=== PATIENT | female | born 1965 | race Caucasian/White ===

== ENCOUNTER 2016-02-23 07:24 | Outpatient (CLI) | payer BC, MEDICAID, OTHER | END 2016-02-23 07:25 | disposition home or self-care (01) | DX: R10.11 Right upper quadrant pain (principal) ==

== ENCOUNTER 2016-02-23 17:07 | Outpatient (CLI) | payer OTHER | END 2016-02-23 17:08 | disposition home or self-care (01) | DX: R10.11 Right upper quadrant pain (principal); K76.89 Other specified diseases of liver ==

== ENCOUNTER 2016-12-27 10:07 | Outpatient (CLI) | payer BC ==
--- NOTE | 2016-12-30 13:50 | Mammography Report ---
DIGITAL SCREENING MAMMOGRAM: 12/27/2016 CLINICAL INDICATION: A 51-year-old with history of bilateral augmentation, for screening. TECHNIQUE: Routine CC and MLO projections were obtained of the breasts. Bilateral implant-displaced views. COMPARISON: 08/2015, 03/2013, 09/2011, 06/2010, 06/2009. FINDINGS: T breasts again demonstrate scattered fibroglandular densities bilaterally. Bilateral subg landular silicone implants are stable. Punctate, typically benign calcifications are present. No susp icious masses, clustered microcalcifications, or regions of architectural distortion are identified. IMPRESSION: BENIGN FINDINGS. RECOMMENDATION: ROUTINE ANNUAL SCREENING UNLESS OTHERWISE CLINICALLY INDICATED. BIRADS CATEGORY 2-BENIGN FINDINGS. STANDARD QUALIFYING STATEMENTS 1. This examination was reviewed with the aid of Computer-Aided Detection (CAD). 2. A negative or benign imaging report should not delay biopsy if clinically suspicious findings are present. Consider surgical consultation if warranted. More than 5% of cancers are not identified by i maging. 3. Dense breasts may obscure an underlying neoplasm. JOB #: [id number] EXT JOB #:[id number]
== END 2016-12-27 10:08 | disposition home or self-care (01) ==
LOC: DI.N 10:07
PROVIDERS: ATTEND Registered Nurse
DX: Z12.31 Encounter for screening mammogram for malignant neoplasm of breast (principal)
CPT/HCPCS: 77067

== ENCOUNTER 2017-02-11 07:45 | Outpatient (CLI) | payer BC | END 2017-02-11 07:46 | disposition critical access hospital (66) | LOC: EMS 07:45 | PROVIDERS: ATTEND Surgery | DX: R07.9 Chest pain, unspecified (principal) | CPT/HCPCS: A0425; A0427 ==

== ENCOUNTER 2017-02-11 08:05 | Emergency (ER) | payer BC ==
[2017-02-11] MEDS ORDERED: diltiaZEM INJ 5 MG/ML VIAL IVP STA ×2 (08:12→08:19)
[2017-02-11] MEDS ORDERED: diltiaZEM INJ 5 MG/ML VIAL ONE (08:19)
--- NOTE | 2017-02-11 08:25 | ED Physician Documentation ---
PD HPI CHEST PAIN - Stated complaint Stated Complaint: CP - Chief complaint Chief Complaint: Cardiac - History obtained from History obtained from: Patient, EMS - History of Present Illness Timing - onset: Enter time (2100), Last night Timing - onset during: Rest Timing - duration: Hours Timing - details: Gradual onset, Still present, Waxing and waning Quality: Pressure, Sharp Location: Substernal Radiation: Neck Improved by: Rest Worsened by: Exertion Associated symptoms: Shortness of air, Diaphoresis, Nausea, Feeling faint / dizzy, General Weakness, Palpitations Similar symptoms before: Has not had sx before Recently seen: Not recently seen - Additional information Additional information: Previously healthy 51-year-old female developed some rapid heart rate last night she developed some intermittent chest pain associated with this with a background 3 out of 10 chest pain and periodically this pain is much worse. 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 She has not had episodes of atrial fibrillation previously she does not drink alcohol and she does drink coffee. She states that she has not had any recent illness is not feeling off in any way and has not been overindulgence anything specific. She does have some general stress in her life but no physical ailment. Review of Systems Constitutional: denies: Fever, Chills, Myalgias Eyes: denies: Decreased vision Ears: denies: Ear pain Nose: denies: Rhinorrhea / runny nose, Congestion Throat: denies: Sore throat Cardiac: reports: Chest pain / pressure, Palpitations. denies: Pedal edema, Calf pain Respiratory: reports: Dyspnea. 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 HEENT: Tonsil/Adenoidectomy - Present Medications Home Medications: Ambulatory Orders Medication Instructions Recorded Confirmed Metoprolol Tartrate 25 mg PO BID #40 tablet 02/11/17 - Allergies Allergies/Adverse Reactions: Allergies Allergy/AdvReac Type Severity Reaction Status Date / Time Penicillins Allergy Hives Verified 02/11/17 08:10 - Social History Does the pt smoke?: No Smoking Status: Never smoker Does the pt drink ETOH?: Yes Does the pt have substance abuse?: No - Immunizations Immunizations are current?: Yes - POLST Patient has POLST: Yes PD ED PE NORMAL - Vitals Vital signs reviewed: Yes (tachy and hypertensive ) - General General: Alert and oriented X 3, Well developed/nourished, Other (Anxious appearing 51-year-old female who is hyperventilating) - HEENT HEENT: Atraumatic, PERRL, EOMI - Neck Neck: Supple, no meningeal sign, No bony TTP, No JVD - Cardiac Cardiac: No murmur, Other (rapid irregularly irregular rate and rhythm) - Respiratory Respiratory: No respiratory distress, Clear bilaterally - Abdomen Abdomen: Soft, Non tender - Back Back: No CVA TTP, No spinal TTP - Derm Derm: Normal color, Warm and dry, No rash - Extremities Extremities: No deformity, No edema - Neuro Neuro: Alert and oriented X 3, No motor deficit, No sensory deficit Eye Opening: Spontaneous Motor: Obeys Commands Verbal: Oriented GCS Score: 15 - Psych Psych: Normal affect, Other (The mood is anxious.) Results - Vitals Vitals: Vital Signs - 24 hr 02/11/17 02/11/17 02/11/17 08:06 08:25 08:30 Temperature 36.6 C Heart Rate 151 H 97 103 H Respiratory 19 16 16 Rate Blood Pressure 144/84 H 130/98 H 127/82 H O2 Saturation 99 99 99 02/11/17 02/11/17 02/11/17 08:35 10:10 10:15 Temperature Heart Rate 91 81 83 Respiratory 20 14 Rate Blood Pressure 132/94 H 115/81 H 109/84 H O2 Saturation 100 97 97 02/11/17 02/11/17 02/11/17 10:20 11:32 11:35 Temperature Heart Rate 81 93 83 Respiratory 19 16 14 Rate Blood Pressure 110/84 H 118/80 118/80 O2 Saturation 97 97 99 Oxygen O2 Source Room air - EKG (time done) 0814 Rate: Rate (enter#) (150) Rhythm: Atrial fibrillation Compare to prior EKG: Old EKG unavailable Computer interpretation: Agree with computer - Labs Labs: Laboratory Tests 02/11/17 02/11/1718 08:41 08:41 08:41 WBC 9.4 RBC 4.93 Hgb 15.6 Hct 45.3 MCV 91.9 MCH 31.7 H MCHC 34.4 RDW 13.5 Plt Count 329 MPV 8.0 Neut # 6.3 Lymph # 2.3 [place] # 0.6 Eos # 0.2 Baso # 0.1 Absolute Nucleated RBC 0.01 Nucleated RBC % 0.1 D-Dimer Sodium 136 Potassium 3.9 Chloride 108 Carbon Dioxide 18 L Anion Gap 10.0 BUN 18 Creatinine 0.6 Estimated GFR (MDRD) 105 Glucose 110 H Calcium 9.2 Total Bilirubin 0.8 AST 20 ALT 18 Alkaline Phosphatase 55 Troponin I < 0.04 B-Natriuretic Peptide Total Protein 7.9 Albumin 4.7 Globulin 3.2 Albumin/Globulin Ratio 1.5 Lipase 32 TSH Urine Color Urine Clarity Urine pH Ur Specific [place] Urine Protein Urine Glucose (UA) Urine Ketones Urine Occult Blood Urine Nitrite Urine Bilirubin Urine Urobilinogen Ur Leukocyte Esterase Ur Microscopic Review Urine Culture Comments Urine HCG, Qual Urine Opiates Screen Ur Oxycodone Screen Urine Methadone Screen Ur Propoxyphene Screen Ur Barbiturates Screen Ur Tricyclics Screen Ur Phencyclidine Scrn Ur Amphetamine Screen U Methamphetamines Scrn U Benzodiazepines Scrn Urine Cocaine Screen U Cannabinoids Screen Ethyl Alcohol < 5.0 02/11/17 02/11/17 02/11/17 08:41 08:41 08:41 WBC RBC Hgb Hct MCV MCH MCHC RDW Plt Count MPV Neut # Lymph # [place] # Eos # Baso # Absolute Nucleated RBC Nucleated RBC % D-Dimer < 200.0 L Sodium Potassium Chloride Carbon Dioxide Anion Gap BUN Creatinine Estimated GFR (MDRD) Glucose Calcium Total Bilirubin AST ALT Alkaline Phosphatase Troponin I B-Natriuretic Peptide 36 Total Protein Albumin Globulin Albumin/Globulin Ratio Lipase TSH 1.41 Urine Color Urine Clarity Urine pH Ur Specific [place] Urine Protein Urine Glucose (UA) Urine Ketones Urine Occult Blood Urine Nitrite Urine Bilirubin Urine Urobilinogen Ur Leukocyte Esterase Ur Microscopic Review Urine Culture Comments Urine HCG, Qual Urine Opiates Screen Ur Oxycodone Screen Urine Methadone Screen Ur Propoxyphene Screen Ur Barbiturates Screen Ur Tricyclics Screen Ur Phencyclidine Scrn Ur Amphetamine Screen U Methamphetamines Scrn U Benzodiazepines Scrn Urine Cocaine Screen U Cannabinoids Screen Ethyl Alcohol 02/11/17 02/11/17 09:05 09:05 WBC RBC Hgb Hct MCV MCH MCHC RDW Plt Count MPV Neut # Lymph # [place] # Eos # Baso # Absolute Nucleated RBC Nucleated RBC % D-Dimer Sodium Potassium Chloride Carbon Dioxide Anion Gap BUN Creatinine Estimated GFR (MDRD) Glucose Calcium Total Bilirubin AST ALT Alkaline Phosphatase Troponin I B-Natriuretic Peptide Total Protein Albumin Globulin Albumin/Globulin Ratio Lipase TSH Urine Color YELLOW Urine Clarity CLEAR Urine pH 6.5 Ur Specific [place] 1.010 Urine Protein NEGATIVE Urine Glucose (UA) NEGATIVE Urine Ketones NEGATIVE Urine Occult Blood NEGATIVE Urine Nitrite NEGATIVE Urine Bilirubin NEGATIVE Urine Urobilinogen 0.2 (NORMAL) Ur Leukocyte Esterase NEGATIVE Ur Microscopic Review NOT INDICATED Urine Culture Comments NOT INDICATED Urine HCG, Qual NEGATIVE Urine Opiates Screen NEGATIVE Ur Oxycodone Screen NEGATIVE Urine Methadone Screen NEGATIVE Ur Propoxyphene Screen NEGATIVE Ur Barbiturates Screen NEGATIVE Ur Tricyclics Screen NEGATIVE Ur Phencyclidine Scrn NEGATIVE Ur Amphetamine Screen NEGATIVE U Methamphetamines Scrn NEGATIVE U Benzodiazepines Scrn NEGATIVE Urine Cocaine Screen NEGATIVE U Cannabinoids Screen NEGATIVE Ethyl Alcohol - Rads (name of study) 1 veiw chest Radiology: Prelim report reviewed (Impression: Normal single view chest), EMP read indepedently, See rad report Procedures - IVC sono (time) 0820 Bedside IVC sono: IVC measures (cm) (2.05), IVC collapsed c insp (cm) (1.90), High CVP PD MEDICAL DECISION MAKING - ED course Complexity details: reviewed results, re-evaluated patient, considered differential, d/w patient, d/w family ED course: 51-year-old previously healthy female with acute atrial fibrillation flutter and a rapid ventricular response up to 160 appears not to be tolerating this with increased central venous pressure and dyspnea. She is administered Cardizem 20 mg intravenously and a subsequent dose of 25 mg. This does slow her heart rate to under 100. She is anxious and is administered Ativan 1 mg as well. She has inadequate rate control and she is subsequently administered metoprolol 5 mg intravenously with improvement in her rate and symptoms. Departure - Departure Disposition: 01 Home, Self Care Clinical Impression: Atrial fibrillation and flutter Condition: Stable Instructions: ED Afib Follow-Up: [facility] [Provider Group] Prescriptions: Metoprolol Tartrate 25 mg PO BID #40 tablet Forms: Activity restrictions Discharge Date/Time: 02/11/17 11:37
--- NOTE | 2017-02-11 08:43 | XRAY Preliminary Report ---
Exam: XR CHEST 1 VIEW X-RAY IMPRESSION: Normal single view chest. [facility] SITE ID: [id number]
--- NOTE | 2017-02-11 08:43 | XRAY Report ---
EXAM: CHEST RADIOGRAPHY EXAM DATE: 02/11/2017 08:34 AM. CLINICAL HISTORY: Chest pain. COMPARISON: None. TECHNIQUE: 1 view. FINDINGS: Lungs/Pleura: No focal opacities evident. No pleural effusion. No pneumothorax. Mediastinum: Within exam limitations, the cardiomediastinal contour is normal. Other: None. IMPRESSION: Normal single view chest. [facility] Referring Provider Line: [phone] SITE ID: [id number]
[2017-02-11] MEDS ORDERED: LORazepam 2 MG/ML VIAL IVP STA (08:44)
[2017-02-11 08:45] LABS: BASOPHILS # (AUTO) 0.1 10^3/uL (0.0-0.1); EOSINOPHILS # (AUTO) 0.2 10^3/uL (0.0-0.7); EOSINOPHILS % (AUTO) 1.7 %; HGB - HEMOGLOBIN 15.6 g/dL (12.0-16.0); LYMPHOCYTES # (AUTO) 2.3 10^3/uL (1.5-3.5); LYMPHOCYTES % (AUTO) 24.2 %; MEAN CORPUSCULAR HEMOGLOBIN 31.7 pg (27.0-31.0); MEAN CORPUSCULAR HGB CONC 34.4 g/dL (32.0-36.0); MEAN CORPUSCULAR VOLUME 91.9 fL (81.0-99.0); MONOCYTES # (AUTO) 0.6 10^3/uL (0.0-1.0); MONOCYTES % (AUTO) 6.5 %; NEUTROPHILS # (AUTO) 6.3 10^3/uL (1.5-6.6); NEUTROPHILS % (AUTO) 66.6 %; PLT - PLATELET COUNT 329 10^3/uL (130-450); RED BLOOD COUNT 4.93 10^6/uL (4.20-5.40); RED CELL DISTRIBUTION WIDTH 13.5 % (12.0-15.0); WHITE BLOOD COUNT 9.4 x10^3/uL (4.8-10.8)
[2017-02-11] MEDS ORDERED: LORazepam 2 MG/ML VIAL ONE (08:52)
[2017-02-11 08:57] LABS: ALBUMIN 4.7 g/dL (3.2-5.5); ALBUMIN/GLOBULIN RATIO 1.5 (1.0-2.2); ALKALINE PHOSPHATASE 55 IU/L (42-121); ALT ALANINE AMINOTRANSFERASE 18 IU/L (10-60); AST ASPARTATE AMINOTRANSFERASE 20 IU/L (10-42); BILIRUBIN,TOTAL 0.8 mg/dL (0.2-1.0); BUN - BLOOD UREA NITROGEN 18 mg/dL (6-20); CALCIUM 9.2 mg/dL (8.5-10.3); CARBON DIOXIDE - CO2 18 mmol/L (21-32); CHLORIDE 108 mmol/L (101-111); CREATININE 0.6 mg/dL (0.4-1.0); GFR - MDRD 105 (>89); GLUCOSE 110 mg/dL (70-100); LIPASE 32 U/L (22-51); SODIUM 136 mmol/L (135-145); TOTAL PROTEIN 7.9 g/dL (6.7-8.2)
[2017-02-11 09:08] LABS: MUDS CUTOFF CONCENTRATIONS CUTOFF CONC BELOW:
[2017-02-11 09:12] LABS: BILIRUBIN,URINE NEGATIVE (NEGATIVE); GLUCOSE, URINE (UA) NEGATIVE (NEGATIVE); KETONES,URINE (UA) NEGATIVE (NEGATIVE); LEUKOCYTE ESTERASE, URINE NEGATIVE (NEGATIVE); NITRITE,URINE NEGATIVE (NEGATIVE); OCCULT BLOOD,URINE NEGATIVE (NEGATIVE); PH,URINE 6.5 PH (5.0-7.5); PROTEIN,URINE NEGATIVE (NEGATIVE); UROBILINOGEN,URINE 0.2 (NORMAL) E.U./dL (NORMAL)
[2017-02-11 09:29] LABS: CLARITY,URINE CLEAR (CLEAR); HCG UR QUAL NEGATIVE
[2017-02-11 09:30] LABS: AMPHETAMINE SCREEN,URINE NEGATIVE (NEGATIVE); BENZODIAZEPINES SCREEN, URINE NEGATIVE (NEGATIVE); COCAINE SCREEN URINE NEGATIVE (NEGATIVE); METHADONE SCREEN, URINE NEGATIVE (NEGATIVE); METHAMPHETAMINES SCREEN, URINE NEGATIVE (NEGATIVE); OPIATE SCREEN, URINE NEGATIVE (NEGATIVE); OXYCODONE SCREEN, URINE NEGATIVE (NEGATIVE); PROPOXYPHENE SCREEN, URINE NEGATIVE (NEGATIVE); TRICYCLIC ANTIDEPRESSANT,URINE NEGATIVE (NEGATIVE)
[2017-02-11] MEDS ORDERED: METOPROLOL 5 MG/5 ML VIAL IVP STA (10:01)
[2017-02-11 11:33] VITALS: BP 118/80
== END 2017-02-11 11:37 | disposition home or self-care (01) ==
LOC: EDUNIT# → ED 08:05
DX: I48.91 Unspecified atrial fibrillation (principal); I48.92 Unspecified atrial flutter; F41.9 Anxiety disorder, unspecified; R06.4 Hyperventilation
CPT/HCPCS: 36415; 71045; 80053; 80306; 80320; 81003; 81025; 83690; 83880; 84443; 84484; 85025; 85379; 93005; 96374; 96375; 99284; J2060; 81001; 87086

== ENCOUNTER 2017-02-24 07:48 | Day surgery (SDC) | payer BC ==
[2017-02-24 08:09] LABS: HCG UR QUAL NEGATIVE
[2017-02-24] MEDS ORDERED: LACTATED RINGERS 1,000 ML IV ONE (08:26)
[2017-02-24] MEDS ORDERED: fentaNYL 100 MCG/2 ML VIAL IVP ONE (08:55)
[2017-02-24] MEDS ORDERED: MIDAZOLAM 2 MG/2 ML VIAL IVP ONE (08:55)
[2017-02-24 09:58] VITALS: BP 132/68
== END 2017-02-24 07:49 | disposition home or self-care (01) ==
LOC: SDS 07:48
PROVIDERS: ATTEND Surgery
PROC: 0DJD8ZZ Inspection of Lower Intestinal Tract, Via Natural or Artificial Opening Endoscopic (ICD-10-PCS; principal; 2017-02-24 09:00)
DX: Z12.11 Encounter for screening for malignant neoplasm of colon (principal); K57.30 Diverticulosis of large intestine without perforation or abscess without bleeding; K64.8 Other hemorrhoids
CPT/HCPCS: 45378; 81025; J7120

== ENCOUNTER 2018-03-21 11:19 | Emergency (ER) | payer BC ==
[2018-03-21 11:23] VITALS: BP 140/78
--- NOTE | 2018-03-21 11:51 | ED Physician Documentation ---
PD HPI URI - Stated complaint Stated Complaint: R EAR PX - Chief complaint Chief Complaint: Heent - History obtained from History obtained from: Patient - History of Present Illness Timing - onset: How many days ago (right ear hurting just the past 1-2 days; less hearing; no discharge.) Timing duration: Days (1-2) Timing details: Gradual onset, Still present Associated symptoms: Fever, Chills, Ear pain, Nasal congestion, Dry cough. No: Sore throat, Hemoptysis, NVD Contributing factors: Sick contact. No: COPD / asthma Similar symptoms before: Has not had sx before Recently seen: Not recently seen Review of Systems Constitutional: reports: Myalgias. 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, Other HEENT: Tonsil/Adenoidectomy - Present Medications Home Medications: Ambulatory Orders Medication Instructions Recorded Confirmed Cephalexin [Keflex] 500 mg PO TID #21 capsule 03/21/18 Dexamethasone [Decadron] 4 mg PO DAILY #5 tablet 03/21/18 Diltiazem HCl [Cardizem] 120 mg PO 03/21/18 Diphenoxylate/Atropine [Lomotil] 1 each PO QID PRN #12 tablet 03/21/18 Ondansetron Odt [Zofran] 4 mg TL Q6H PRN #10 tablet 03/21/18 Saccharomyces Boulardii [Florastor] 250 mg PO BID #20 capsule 03/21/18 - Allergies Allergies/Adverse Reactions: Allergies Allergy/AdvReac Type Severity Reaction Status Date / Time Penicillins Allergy Hives Verified 03/21/18 11:23 - Social History Does the pt smoke?: No Smoking Status: Never smoker Does the pt drink ETOH?: Yes Does the pt have substance abuse?: No - Immunizations Immunizations are current?: Yes - POLST Patient has POLST: Yes Results - Vitals Vitals: Vital Signs - 24 hr 03/21/18 11:21 Temperature 36.8 C Heart Rate 72 Respiratory 16 Rate Blood Pressure 140/78 H O2 Saturation 99 Oxygen O2 Source Room air - Labs Labs: Microbiology 03/21/18 12:24 Occult Blood - Final Stool Laboratory Tests 03/21/18 12:29 Influenza A (Rapid) Negative Influenza B (Rapid) Negative PD MEDICAL DECISION MAKING - ED course Complexity details: reviewed results (guiac negative; presume the black stool was from the Pepto. ), considered differential (sounding flu-like though not high fevers. had some nausea and diarrhea, started to take Pepto for stomach and gas. Has black stools now. Still with congestion, and has developed ear pain. ), d/w patient Departure - Departure Disposition: 01 Home, Self Care Clinical Impression: Flu-like symptoms Otitis media Qualifiers: Otitis media type: suppurative Chronicity: acute Laterality: right Recurrence: non-recurrent Spontaneous tympanic membrane rupture: without spontaneous rupture Qualified Code(s): H66.001 - Acute suppurative otitis media without spontaneous rupture of ear drum, right ear Condition: Stable Record reviewed to determine appropriate education?: Yes Instructions: ED Otitis Media Acute Adult Follow-Up: Cheri Vilchis MD [Primary Care Provider] - Prescriptions: Cephalexin [Keflex] 500 mg PO TID #21 capsule Dexamethasone [Decadron] 4 mg PO DAILY #5 tablet Diphenoxylate/Atropine [Lomotil] 1 each PO QID PRN #12 tablet PRN Reason: Diarrhea Ondansetron Odt [Zofran] 4 mg TL Q6H PRN #10 tablet PRN Reason: Nausea / Vomiting Saccharomyces Boulardii [Florastor] 250 mg PO BID #20 capsule Comments: Drink lots of fluids. Ondansetron if needed for nausea. Lomotil if needed for diarrhea. Your stool guaiac test (looking for blood) was negative so the dark color likely was phase out of the Pepto-Bismol. No signs of bleeding at this time. Your general symptoms sound flulike. The ear does have a distinct infection appearance and this is commonly bacterial. We did use cephalexin 3 times a day for a week and concurrently use a probiotic to minimize intestinal symptoms from it. Recheck if not improving over the next few days. The stool culture will result in a day or two. Discharge Date/Time: 03/21/18 13:28
[2018-03-21] MEDS ORDERED: DIPHENOX/ATROPINE 2.5/0.025 MG TABLET PO STA (12:21)
[2018-03-21] MEDS ORDERED: cephALEXin 250 MG CAPSULE PO STA (12:21)
[2018-03-21] MEDS ORDERED: ONDANSETRON 4 MG/2 ML VIAL IVP STA (12:21)
[2018-03-21] MEDS ORDERED: ONDANSETRON ODT 4 MG TABLET TL STA (12:48)
== END 2018-03-21 13:28 | disposition home or self-care (01) ==
LOC: ED 11:19
DX: J11.1 Influenza due to unidentified influenza virus with other respiratory manifestations (principal); H66.001 Acute suppurative otitis media without spontaneous rupture of ear drum, right ear; I10 Essential (primary) hypertension
CPT/HCPCS: 82270; 87275; 87276; 99283; A9270; Q0162; 87493

== ENCOUNTER 2019-02-25 11:53 | Outpatient (CLI) | payer BC, OTHER ==
[2019-02-25 19:33] LABS: RHEUMATOID FACTOR NEGATIVE (Negative)
[2019-03-06 10:35] LABS: HLA-B27 Positive (Negative)
== END 2019-02-25 23:59 | disposition home or self-care (01) ==
LOC: LAB.N 11:53
PROVIDERS: ATTEND Podiatrist
DX: M76.62 Achilles tendinitis, left leg (principal)
CPT/HCPCS: 36415; 84550; 85651; 86038; 86430; 86812

== ENCOUNTER 2023-06-25 08:28 | Emergency (ER) | payer OTHER ==
--- NOTE | 2023-06-25 08:49 | ED Physician Documentation ---
PD HPI ABD PAIN - Stated complaint Stated Complaint: BACK PX - Chief complaint Chief Complaint: Abd Pain - History obtained from History obtained from: Patient - Additional information Additional information: She has a history of renal colic. Lithotripsy approximately 10 years ago. Show the last 2 weeks she has had waxing and waning left flank pain. Constant to some degree but then with spikes. She is been taking Aleve with only partial if any relief. She denies urinary complaints. Here with her . 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, Other HEENT: Tonsil/Adenoidectomy - Present Medications Home Medications: Ambulatory Orders Medication Instructions Recorded Confirmed Diltiazem HCl [Cardizem] 120 mg PO 03/21/18 Diphenoxylate/Atropine [Lomotil] 1 each PO QID PRN #12 tablet 03/21/18 Ondansetron Odt [Zofran] 4 mg TL Q6H PRN #10 tablet 03/21/18 Saccharomyces Boulardii [Florastor] 250 mg PO BID #20 capsule 03/21/18 cephALEXin [Keflex] 500 mg PO TID #21 capsule 03/21/18 dexAMETHasone [Decadron] 4 mg PO DAILY #5 tablet 03/21/18 Ondansetron Odt [Zofran] 4 mg TL Q6H PRN #10 tablet 06/25/23 Tamsulosin [Flomax] 0.4 mg PO DAILY #14 cap 06/25/23 oxyCODONE [Roxicodone] 5 mg PO Q4-6H PRN #20 tablet 06/25/23 - Allergies Allergies/Adverse Reactions: Allergies Allergy/AdvReac Type Severity Reaction Status Date / Time Penicillins Allergy Hives Verified 06/25/23 08:46 - Social History Does the pt smoke?: No Smoking Status: Never smoker Does the pt drink ETOH?: Yes Does the pt have substance abuse?: No - Immunizations Immunizations are current?: Yes - POLST Patient has POLST: Yes PD ED PE NORMAL - Vitals Vital signs reviewed: Yes - General General: Alert and oriented X 3, No acute distress - Abdomen Abdomen: Normal bowel sounds, Soft, Other (Tenderness over the left flank and left lower quadrant without surgical signs.) - Neuro Neuro: Alert and oriented X 3 Results - Vitals Vitals: Vital Signs - 24 hr 06/25/23 08:43 Temperature 36.5 C Heart Rate 71 Respiratory 15 Rate Blood Pressure 127/85 H O2 Saturation 100 Oxygen O2 Source Room air - Labs Labs: Laboratory Tests 06/25/23 06/25/23 06/25/23 09:00 09:17 09:17 WBC 8.5 RBC 4.40 Hgb 13.2 Hct 41.1 MCV 93.4 MCH 30.0 MCHC 32.1 RDW 12.3 Plt Count 323 MPV 10.0 Neut # (Auto) 5.9 Lymph # (Auto) 1.5 [place] # (Auto) 0.7 Eos # (Auto) 0.3 Baso # (Auto) 0.1 Absolute Nucleated RBC 0.00 Nucleated RBC % 0.0 Sodium 139 Potassium 4.1 Chloride 105 Carbon Dioxide 28 Anion Gap 6.0 BUN 16 Creatinine 0.7 Estimated GFR (MDRD) 86 L Glucose 105 H Calcium 9.6 Urine Color YELLOW Urine Clarity CLEAR Urine pH 6.0 Ur Specific [place] 1.025 Urine Protein NEGATIVE Urine Glucose (UA) NEGATIVE Urine Ketones NEGATIVE Urine Occult Blood LARGE H Urine Nitrite NEGATIVE Urine Bilirubin NEGATIVE Urine Urobilinogen 0.2 (NORMAL) Ur Leukocyte Esterase NEGATIVE Urine RBC 6-10 H Urine WBC 4-5 Ur Squamous Epith Cells RARE Squamous Urine Bacteria Few Ur Microscopic Review INDICATED Urine Culture Comments NOT INDICATED - Rads (name of study) CT a/p Relevant Findings:: Final report received, EMP independent interpretation of test PD Medical Decision Making - ED course ED course: She presents with symptoms consistent with renal colic and is found to have a 7 mm obstructing stone on the left. Her pain was controlled with 1 dose of oxycodone here. Workup in the emergency department demonstrates an unremarkable CBC and CMP. Urinalysis has blood but otherwise unremarkable and no signs of infection. We discussed the incidental findings on her CT including the hiatal hernia, severe spinal stenosis. She is having chronic back pain and will discuss this with her doctor. She is referred to urology as given the location and size of the stone as well as 2 weeks of pain, likely she will need it addressed. Departure - Departure Disposition: Home, Self Care Clinical Impression: Renal colic Condition: Good Record reviewed to determine appropriate education?: Yes Instructions: ED Stone Renal W Colic Follow-Up: Saad Morin MD [Provider Admit Priv/Credential] - Prescriptions: Tamsulosin [Flomax] 0.4 mg PO DAILY #14 cap oxyCODONE [Roxicodone] 5 mg PO Q4-6H PRN #20 tablet PRN Reason: Pain Ondansetron Odt [Zofran] 4 mg TL Q6H PRN #10 tablet PRN Reason: Nausea / Vomiting Comments: You were seen today for the 7 mm kidney stone. More likely than not you will need this removed by the urologist. Call his office today for an appointment. The numbers on this form. I sent your [facility] electronically to [facility] [place]. We discussed the incidental findings on the CAT scan including the severe spinal stenosis. Talk with your primary care physician about this. Potentially they may want to order an MRI or send you to a specialist. I am prescribing a short course of narcotic pain medication for you. These are potentially dangerous and addictive medications that should be used carefully. These medications may constipate you. Take an imjq-bxc-vvlzogn stool softener (docusate) twice daily with plenty of water while taking these medications. If you go 24 hours without a bowel movement, take [id number] miralax, per package instructions. Do not drink or drive while taking these medications. If you received narcotic or sedating medications while in the emergency department, do not drive for 24 hours. Store this medication in a safe, secure place and out of reach of children. It is a violation of federal law to give or sell this medication to another person or to use in a manner other than prescribed. The ED will not refill narcotic prescriptions, including prescriptions lost or stolen. To dispose of unwanted medications: 1. [facility] provides a drop box for medication in pill form only (no liquids) 8:00 am to 4:30 p.m. Friday-Friday in the lobby of the [facility], [address] Empty pills into ziplock bag before disposal. Call [phone] for information. 2.[employer] is a free service available to all [facility] residents. Go to [email or web address] Note that many narcotic pain relievers also contain Tylenol/acetaminophen. Please ensure that your total dose of acetaminophen from all sources does not exceed 3 g (3000 mg) per day. Forms: PCP List
[2023-06-25 08:53] VITALS: O2SAT 100
[2023-06-25] MEDS: oxyCODONE 5 MG TABLET PO STA (08:59)
[2023-06-25] MEDS: ONDANSETRON ODT 4 MG TABLET TL STA (08:59)
[2023-06-25 09:22] LABS: BASOPHILS # (AUTO) 0.1 10^3/uL (0.0-0.1); BASOPHILS % (AUTO) 0.6 %; EOSINOPHILS # (AUTO) 0.3 10^3/uL (0.0-0.7); EOSINOPHILS % (AUTO) 3.7 %; HCT - HEMATOCRIT 41.1 % (37.0-47.0); HGB - HEMOGLOBIN 13.2 g/dL (12.0-16.0); LYMPHOCYTES # (AUTO) 1.5 10^3/uL (1.5-3.5); LYMPHOCYTES % (AUTO) 17.6 %; MEAN CORPUSCULAR HGB CONC 32.1 g/dL (32.0-36.0); MEAN CORPUSCULAR VOLUME 93.4 fL (81.0-99.0); MONOCYTES # (AUTO) 0.7 10^3/uL (0.0-1.0); MONOCYTES % (AUTO) 8.7 %; NEUTROPHILS # (AUTO) 5.9 10^3/uL (1.5-6.6); NEUTROPHILS % (AUTO) 69.2 %; PLT - PLATELET COUNT 323 10^3/uL (130-450); RED CELL DISTRIBUTION WIDTH 12.3 % (12.0-15.0); WHITE BLOOD COUNT 8.5 x10^3/uL (4.8-10.8)
[2023-06-25 09:28] LABS: BILIRUBIN,URINE NEGATIVE (NEGATIVE); GLUCOSE, URINE (UA) NEGATIVE (NEGATIVE); KETONES,URINE (UA) NEGATIVE (NEGATIVE); LEUKOCYTE ESTERASE, URINE NEGATIVE (NEGATIVE); NITRITE,URINE NEGATIVE (NEGATIVE); OCCULT BLOOD,URINE LARGE (NEGATIVE); PROTEIN,URINE NEGATIVE (NEGATIVE); UROBILINOGEN,URINE 0.2 (NORMAL) E.U./dL (NORMAL)
[2023-06-25 09:29] LABS: CLARITY,URINE CLEAR (CLEAR)
[2023-06-25 09:34] LABS: BACTERIA,URINE Few /HPF (None Seen); SQUAMOUS EPITHELIAL CELL,UR RARE Squamous (<= Few)
[2023-06-25 09:39] LABS: CALCIUM 9.6 mg/dL (8.5-10.3); CREATININE 0.7 mg/dL (0.6-1.3); POTASSIUM 4.1 mmol/L (3.5-4.5)
[2023-06-25] MEDS: TAMSULOSIN 0.4 MG CAPSULE PO STA (09:57)
--- NOTE | 2023-06-25 09:57 | CT Report ---
PROCEDURE: Abdomen/Pelvis WO INDICATIONS: L flank pain TECHNIQUE: A CT scan of the abdomen and pelvis was performed without the use of intravenous contrast. Images we re recorded and evaluated at appropriate window settings. Reformats: coronal and sagittal. For radiat ion dose reduction, the following was used: automated exposure control, adjustment of mA and/or kV ac cording to patient size. COMPARISON: None. FINDINGS: Image quality: Diagnostic. Lower chest: Small hiatal hernia. Bilateral mammoplasties. Otherwise unremarkable.. Liver: No contour-deforming mass. Multiple liver cysts. Gallbladder and biliary tree: Surgically absent. No biliary dilation, accounting for post-cholecystec thania state. Spleen: No splenomegaly. Pancreas: No pancreatic ductal dilation. Adrenals: No adrenal nodule. Kidneys and ureters: There is a 7 mm obstructing left UPJ ureteral stone with a Hounsfield measuremen t of 1428 which obstructs the left kidney resulting in moderate left hydronephrosis. No left renal pa renchymal stone. No right renal stone. No right hydronephrosis. Stomach, bowel and peritoneum: No bowel distension. No pathologic free fluid. Diverticulosis without evidence of diverticulitis. Lymph nodes: No central or retroperitoneal adenopathy. Vessels: No infrarenal aortic aneurysm. PELVIS Reproductive organs: Unremarkable. Bladder: No wall thickness, accounting for underdistention. Pelvic lymph nodes: No pelvic adenopathy by size criteria. Bones: No aggressive osseous abnormality. Lumbar degenerative change. At least moderate and possibly severe canal stenosis at L4-L5.. Other: No significant ventral or inguinal hernia. IMPRESSION: 1. A 7 mm stone obstructs the left kidney at the left ureteropelvic junction with resultant moderate left hydronephrosis. 2. Incidental note made of at least moderate, and possibly severe canal stenosis at L4-L5 3. Small hiatal hernia. 4. Diverticulosis. Reviewed by: Bahman Constantino MD on 06/25/2023 9:56 AM PDT Approved by: Bahman Constantino MD on 06/25/2023 9:56 AM PDT Station ID: [id number]
[2023-06-25 10:37] VITALS: BP 146/84
== END 2023-06-25 10:31 | disposition home or self-care (01) ==
LOC: ED 08:28
DX: N13.2 Hydronephrosis with renal and ureteral calculous obstruction (principal); K44.9 Diaphragmatic hernia without obstruction or gangrene; M48.061 Spinal stenosis, lumbar region without neurogenic claudication; G89.29 Other chronic pain; I10 Essential (primary) hypertension
CPT/HCPCS: 36415; 74176; 80048; 81001; 85025; 99283; A9270; Q0162; 81003; 87086

== ENCOUNTER 2023-07-14 07:19 | Day surgery (SDC) | payer OTHER ==
[2023-07-14] MEDS ORDERED: CIPROFLOXACIN 400 MG/200 ML 400 MG/200 ML BAG IV ONE (07:25)
[2023-07-14] MEDS: LACTATED RINGERS 1,000 ML IV ONE ×2 (07:50→09:53)
[2023-07-14] MEDS ORDERED: MIDAZOLAM 2 MG/2 ML VIAL ONE (08:16)
[2023-07-14] MEDS ORDERED: fentaNYL 100 MCG/2 ML VIAL ONE (08:16)
[2023-07-14] MEDS ORDERED: PROPOFOL 200 MG/20 ML VIAL IVP ONE (08:16)
[2023-07-14] MEDS ORDERED: LIDOCAINE-PF 2% 10 ML AMP SUBQ ONE (08:16)
[2023-07-14] MEDS ORDERED: fentaNYL 100 MCG/2 ML VIAL IVP PRN (08:56)
[2023-07-14] MEDS ORDERED: HYDROmorphone 0.5 MG/0.5 ML SYRINGE IVP PRN (08:56)
[2023-07-14] MEDS ORDERED: METOCLOPRAMIDE 10 MG/2 ML VIAL IVP PRN (08:56)
[2023-07-14] MEDS ORDERED: NALOXONE 0.4 MG/ML VIAL IVP PRN (08:56)
[2023-07-14] MEDS ORDERED: ePHEDrine 50 MG/ML VIAL IVP PRN (08:56)
[2023-07-14] MEDS ORDERED: MORPHINE 2 MG/ML CARPUJECT IVP PRN (08:56)
[2023-07-14] MEDS ORDERED: ONDANSETRON 4 MG/2 ML VIAL IVP PRN ×2 (08:56→09:59)
[2023-07-14] MEDS ORDERED: ATROPINE ABBOJECT 1 MG/10 ML SYRINGE IVP PRN (08:56)
--- NOTE | 2023-07-14 08:56 | ANESTHESIA ---
Pre-Anesthesia VS, & Labs - Diagnosis L kidney stone - Procedure L eswl Vital Signs: Temp Pulse Resp BP Pulse Ox O2 Flow Rate 36.7 C 74 12 127/73 98 07/14/23 07:32 07/14/23 07:32 07/14/23 07:32 07/14/23 07:32 07/14/23 07:32 Height: 5 ft 11 in Weight (kg): 88.4 kg Body Mass Index: 27.1 BMI Classification: Overweight - NPO >8 hours - Is Patient ?: No - Lab Results Lab results reviewed: Yes Home Medications and Allergies Home Medications: Ambulatory Orders Pantoprazole [Protonix] 40 mg PO DAILY 07/02/23 Diltiazem HCl [Cardizem] 120 mg PO DAILY 03/21/18 Acyclovir 400 mg PO BID 06/25/23 oxyBUTYnin chloride [Oxybutynin Chloride] 5 mg PO BID 06/25/23 Pantoprazole [Protonix] 40 mg PO DAILY 07/02/23 Allergies/Adverse Reactions: Allergies Allergy/AdvReac Type Severity Reaction Status Date / Time albuterol Allergy seizure Verified 07/02/23 14:16 Penicillins Allergy Hives Verified 06/25/23 08:46 Anes History & Medical History - Anesthetic History Anesthesia Complications: reports: No previous complications Family history of Anesthesia Complications: Denies Family history of Malignant Hyperthermia: Denies - Medical History Cardiovascular: reports: Atrial fibrillation Pulmonary: reports: Asthma Gastrointestinal: reports: Hiatal hernia, Other Urinary: reports: Kidney stones Musculoskeletal: reports: Osteoarthritis, Chronic back pain Endocrine/Autoimmune: reports: None Skin: reports: None Smoking Status: Never smoker - Surgical History General: reports: Cholecystectomy, Colonoscopy Eyes Ears Nose Throat (EENT): reports: Tonsil/Adenoidectomy Gynecologic: reports: section, Other Orthopedic: reports: Shoulder arthroplasty, Arthroscopic surgery Exam General: Alert, Oriented x3, Cooperative Dental: WNL Mouth Openin Fingerbreadth Neck Mobility: Normal Mallampati classification: II Thyromental Distance: 4-6 cm Respiratory: Lungs clear, Normal breath sounds, No respiratory distress Cardiovascular: Regular rate Neurological: Normal speech Mental/Cognitive Status: Alert/Oriented X3, Normal for patient Cognitive Status: Within normal limits Plan Anesthesia Type: General Consent for Procedure(s) Verified and Reviewed: Yes Code Status: Attempt Resuscitation ASA classification: 2-Mild systemic disease Is this case an emergency?: No
[2023-07-14] MEDS ORDERED: LACTATED RINGERS 1,000 ML IV SCH (09:00)
[2023-07-14] MEDS ORDERED: DEXAMETHASONE 4 MG/ML VIAL ONE (09:07)
[2023-07-14] MEDS ORDERED: ONDANSETRON 4 MG/2 ML VIAL ONE (09:07)
[2023-07-14] MEDS ORDERED: HYDROcod/ACETAM 5/325 MG TABLET PO PRN (09:59)
--- NOTE | 2023-07-14 10:04 | Discharge Plan ---
Discharge Plan Problem Reviewed?: Yes Disposition: Home, Self Care Condition: Good Prescriptions: Docusate Sodium 100Mg Capsule [Colace 100Mg Capsule] 100 mg PO DAILY #7 cap oxyCODONE [Roxicodone] 5 mg PO Q4H PRN #10 tablet PRN Reason: Pain Diet: Regular Activity Restrictions: No Restrictions Shower Restrictions: No Driving Restrictions: No Instruction Topics: Lithotripsy Shock Wave Additional Instructions or Follow Up instructions: You will be contacted for follow-up next week with Dr. Morin. Please obtain an x-ray by presenting to [facility] imaging department earlier the same day or the day before No Smoking: If you smoke, Please STOP! Call for help. Follow-up with: Saad Morin MD [Provider Admit Priv/Credential] -
[2023-07-14 10:05] VITALS: O2SAT 100
--- NOTE | 2023-07-14 10:06 | OPERATIVE REPORT ---
Operative Report - General Procedure Date: 07/14/23 Planned Procedure: Left extracorporeal shock wave lithotripsy Pre-Op Diagnosis: left ureteral stone Procedure Performed: Left extracorporeal shock wave lithotripsy Post Op Diagnosis: left ureteral stone - Procedure Note Primary Surgeon: Mikel Anesthesia Provider: TERRANCE Fernandez Anesthesia Technique: General LMA Pathology: none Indications: Left 7mm proximal ureteral stone Findings: Left 7mm proximal ureteral stone, moderate dissolution but stone still seen Complications: none - Other Other Information/Narrative: After informed consent was obtained the patient was brought to the OR and laid in the supine position. The patient was anesthetized per anesthesia protocols and then prepped and draped in usual sterile fashion. A formal timeout was performed reconfirming the patient, procedure and laterality. An extracorporeal shockwave lithotripsy Dornier lithotripter device was placed with the pad against the patient's left flank. Geophysical Engineer imaging was performed to isolate and identify the stone. She had a 7mm proximal left ureteral stone which was radioopaque and seen easily. The lithotripter was then started at a rate of 1Hz. A total of 2500 shocks were performed. Periodic spot imaging was used to reconfirm positioning and to monitor this stone. By the end of the case the stone had moderate dissolution. We could clearly see that it had widened and lightened quite significantly. This concluded the procedure and the patient was reversed from anesthesia and brought to the PACU without further incident. She will followup next week with an xray and consider a ureteroscopy if stone still present.
--- NOTE | 2023-07-14 10:17 | ANESTHESIA POST OP EVALUATION ---
Anesthesia Post Eval - Post Anesthesia Eval Vitals: Last Vital Signs Temp 36.6 C 07/14/23 09:53 Pulse 57 L 07/14/23 10:14 Resp 13 07/14/23 10:14 BP 124/71 07/14/23 10:14 Pulse Ox 100 07/14/23 10:14 O2 Flow Rate CV Function Including HR & BP: Stable Pain Control: Satisfactory Nausea & Vomiting: Negative Mental Status: Baseline Respiratory Status: Airway Patent Hydration Status: Satisfactory Anesthesia Complications: None
[2023-07-14 10:36] VITALS: BP 125/77
== END 2023-07-14 07:20 | disposition home or self-care (01) ==
LOC: SDS 07:19
PROVIDERS: ATTEND Urology
DX: N20.1 Calculus of ureter (principal); J45.909 Unspecified asthma, uncomplicated
CPT/HCPCS: 50590; J7120

== ENCOUNTER 2023-07-22 19:32 | Outpatient (CLI) | payer OTHER ==
--- NOTE | 2023-07-23 10:13 | XRAY Report ---
PROCEDURE: Abdomen 1 V INDICATIONS: KIDNEY STONE TECHNIQUE: One view of the abdomen acquired. COMPARISON: CT 06/25/2023 FINDINGS: Surgical changes and devices: Cholecystectomy clips.. Bowel: Bowel gas pattern is normal. Increased stool burden. Soft tissues: Calcification in a similar shape and size (9 mm) to that seen on CT is visible to the l eft of midline at the level of L4, minimally distended compared to the prior CT. Visualized solid org an contours appear normal in size. Bones: No suspicious bony lesions. Degenerative disc and endplate changes at L4-5. IMPRESSION: Minimal change in position of 9 mm left ureteral calculus. Reviewed by: Amparo Gordon MD on 07/23/2023 10:11 AM PDT Approved by: Amparo Gordon MD on 07/23/2023 10:11 AM PDT Station ID: [id number]
== END 2023-07-22 19:33 | disposition home or self-care (01) ==
LOC: DI 19:32
PROVIDERS: ATTEND Urology
DX: N20.1 Calculus of ureter (principal)

== ENCOUNTER 2023-07-28 11:19 | Day surgery (SDC) | payer OTHER ==
[~2023-07-28 11:19] MED LIST: CIPROFLOXACIN 400 MG/200 ML 400 MG/200 ML BAG IV ONE
[2023-07-28] MEDS: LACTATED RINGERS 1,000 ML IV ONE ×2 (11:29→14:21)
[2023-07-28] MEDS ORDERED: iohexoL-240 10 ML VIAL IVP ONE (12:56)
[2023-07-28] MEDS ORDERED: LIDOCAINE 2% URO-JET 5 ML SYRINGE UR ONE (12:57)
[2023-07-28] MEDS ORDERED: fentaNYL 100 MCG/2 ML VIAL ONE ×2 (13:00→13:26)
[2023-07-28] MEDS ORDERED: PROPOFOL 200 MG/20 ML VIAL IVP ONE (13:00)
[2023-07-28] MEDS ORDERED: MIDAZOLAM 2 MG/2 ML VIAL ONE (13:00)
--- NOTE | 2023-07-28 13:14 | ANESTHESIA ---
Pre-Anesthesia VS, & Labs - Diagnosis L Uteroscopy, Cystoscopy - Procedure L Uteroscopy, Cystoscopy Vital Signs: Temp Pulse Resp BP Pulse Ox O2 Flow Rate 36.3 C L 65 13 123/94 H 98 07/28/23 11:29 07/28/23 11:29 07/28/23 11:29 07/28/23 11:29 07/28/23 11:29 Height: 5 ft 11 in Weight (kg): 89 kg Body Mass Index: 27.3 BMI Classification: Overweight - NPO >8 hours - Is Patient ?: No Home Medications and Allergies Diltiazem HCl [Cardizem] 120 mg PO DAILY 03/21/18 Acyclovir 400 mg PO BID 06/25/23 oxyBUTYnin chloride [Oxybutynin Chloride] 5 mg PO BID 06/25/23 Pantoprazole [Protonix] 40 mg PO DAILY 07/02/23 Allergies/Adverse Reactions: Allergies Allergy/AdvReac Type Severity Reaction Status Date / Time albuterol Allergy seizure Verified 07/28/23 11:30 Penicillins Allergy Hives Verified 07/28/23 11:30 Anes History & Medical History - Anesthetic History Anesthesia Complications: reports: No previous complications Family history of Anesthesia Complications: Denies Family history of Malignant Hyperthermia: Denies - Medical History Cardiovascular: reports: Atrial fibrillation (controlled with medication; chronic) Pulmonary: reports: Asthma Gastrointestinal: reports: Hiatal hernia, Other Urinary: reports: Kidney stones Neuro: reports: None Musculoskeletal: reports: Osteoarthritis, Chronic back pain Endocrine/Autoimmune: reports: None Blood Disorders: reports: None Skin: reports: None Smoking Status: Never smoker Psychosocial: reports: No issues indicated, Alcohol (weekends, socially, occasional) History of Cancer?: No - Surgical History General: reports: Cholecystectomy, Colonoscopy Eyes Ears Nose Throat (EENT): reports: Tonsil/Adenoidectomy Gynecologic: reports: section, Other Orthopedic: reports: Arthroscopic surgery Results - EKG Results EKG Comparison: Reviewed EKG, Normal EKG (chronic afib medically managed; Normal sinus rhythm on strip) Exam General: Alert, Oriented x3, Cooperative, No acute distress Dental: WNL Mouth Openin Fingerbreadth Neck Mobility: Normal Mallampati classification: I Thyromental Distance: 4-6 cm Respiratory: Lungs clear, Normal breath sounds, No respiratory distress, No accessory muscle use Cardiovascular: Regular rate, Normal S1, Normal S2, No murmurs Mental/Cognitive Status: Alert/Oriented X3, Normal for patient Cognitive Status: Within normal limits Plan Anesthesia Type: General Consent for Procedure(s) Verified and Reviewed: Yes Code Status: Attempt Resuscitation ASA classification: 2-Mild systemic disease Is this case an emergency?: No
[2023-07-28] MEDS: LIDOCAINE 2% URO-JET 5 ML SYRINGE UR ONE (14:09)
[2023-07-28] MEDS ORDERED: MORPHINE 2 MG/ML CARPUJECT IVP PRN (14:23)
[2023-07-28] MEDS ORDERED: fentaNYL 100 MCG/2 ML VIAL IVP PRN (14:23)
[2023-07-28] MEDS ORDERED: ePHEDrine 50 MG/ML VIAL IVP PRN (14:23)
[2023-07-28] MEDS ORDERED: METOCLOPRAMIDE 10 MG/2 ML VIAL IVP PRN (14:23)
[2023-07-28] MEDS ORDERED: ONDANSETRON 4 MG/2 ML VIAL IVP PRN ×2 (14:23→14:26)
[2023-07-28] MEDS ORDERED: NALOXONE 0.4 MG/ML VIAL IVP PRN (14:23)
[2023-07-28] MEDS ORDERED: ATROPINE ABBOJECT 1 MG/10 ML SYRINGE IVP PRN (14:23)
[2023-07-28] MEDS ORDERED: HYDROmorphone 0.5 MG/0.5 ML SYRINGE IVP PRN (14:23)
[2023-07-28] MEDS ORDERED: HYDROcod/ACETAM 5/325 MG TABLET PO PRN (14:26)
--- NOTE | 2023-07-28 14:34 | Discharge Plan ---
Discharge Plan Problem Reviewed?: Yes Disposition: Home, Self Care Condition: Good Prescriptions: Ciprofloxacin HCl [Cipro] 500 mg PO ONCE #1 tablet Docusate Sodium 100Mg Capsule [Colace 100Mg Capsule] 100 mg PO DAILY #7 cap oxyCODONE [Roxicodone] 5 mg PO Q4H PRN #10 tablet PRN Reason: Pain Diet: Regular Activity Restrictions: No Restrictions Shower Restrictions: No Driving Restrictions: No Instruction Topics: Stents Ureteral Additional Instructions or Follow Up instructions: You have an appointment for stent removal in the office on August 07 at 2 PM. Please arrive 15 minutes early No Smoking: If you smoke, Please STOP! Call for help. Follow-up with: Saad Morin MD [Provider Admit Priv/Credential] -
--- NOTE | 2023-07-28 14:38 | OPERATIVE REPORT ---
Operative Report - General Procedure Date: 07/28/23 Planned Procedure: Cystoscopy, left ureteroscopy, laser lithotripsy, stent Pre-Op Diagnosis: Left ureteral stone Procedure Performed: Cystoscopy, left ureteroscopy, laser lithotripsy, stent Post Op Diagnosis: Left ureteral stone - Procedure Note Primary Surgeon: Mikel Anesthesia Provider: TERRANCE Aldana Anesthesia Technique: General LMA Pathology: none Findings: 7mm proximal ureteral stone - Other Other Information/Narrative: After informed consent was obtained the patient was brought to the OR and laid in the supine position. The patient was anesthetized per anesthesia protocols and prepped and draped in the usual sterile fashion in the dorsolithotomy position. A formal timeout was performed reconfirming the patient, procedure and laterality. Radiology Equipment Servicer imaging showed radiopacity which is 7 mm in size at the expected location the left proximal ureter. A 22 Vincentian cystoscope was advanced easily to urinary bladder. Bladder was inspected and full and there were no masses lesions or other concerns. A sensor wire was placed in the left ureteral orifice and passed the stone. There was immediate chan of some urine which had debris in it. A flexible ureteroscope was then advanced next the wire up to the proximal ureter where there was a stone seen. It was yellow and crystalline. Using 200 m laser fiber at a power of 0.8 and a rate of 8 we turned this into dust. We then chased some of the debris into the kidney itself. She did have a widely dilated renal pelvis proximal to the stone. Once there were no more stones that we could find or any radiopacity seen we decided to conclude the procedure. The ureter was clear under direct visualization. A 6 Vincentian 26 cm stent was placed good curling on the kidney and good curling in the bladder under fluoroscopic an d cystoscopic guidance. We emptied her bladder and placed a Uro-Jet. This concluded the procedure. The patient tolerated seizure well. She will follow- up in a week or 2 for stent removal in the office
[2023-07-28] MEDS ORDERED: DEXAMETHASONE 4 MG/ML VIAL ONE (14:59)
[2023-07-28] MEDS ORDERED: ONDANSETRON 4 MG/2 ML VIAL ONE (14:59)
[2023-07-28] MEDS ORDERED: LACTATED RINGERS 1,000 ML IV SCH ×2 (15:00)
[2023-07-28 15:13] VITALS: BP 142/103; O2SAT 100
--- NOTE | 2023-07-28 16:08 | ANESTHESIA POST OP EVALUATION ---
Anesthesia Post Eval - Post Anesthesia Eval Vitals: Last Vital Signs Temp 36 C L 07/28/23 14:50 Pulse 69 07/28/23 14:50 Resp 18 07/28/23 14:50 BP 142/103 H 07/28/23 14:50 Pulse Ox 100 07/28/23 14:50 O2 Flow Rate CV Function Including HR & BP: Stable Pain Control: Satisfactory Nausea & Vomiting: Negative Mental Status: Baseline Respiratory Status: Airway Patent Hydration Status: Satisfactory Anesthesia Complications: None
--- NOTE | 2023-07-28 17:07 | XRAY Report ---
PROCEDURE: OR C-Arm Procedure INDICATIONS: STENT PLACEMENT FLUORO TIME: 0.2 MIN TECHNIQUE: 7 intraoperative fluoroscopic images of abdomen were obtained. COMPARISON: CT of abdomen and pelvis dated 06/25/2023 and abdominal radiograph dated 07/22/2023. FINDINGS: Intraoperative fluoroscopic images shows placement of left-sided ureteral stent under fluoroscopic gu idance. IMPRESSION: Fluoroscopy guidance was provided intraoperatively for left ureteral stent placement performed by the ordering physician. Reviewed by: Mann Velarde MD on 07/28/2023 5:05 PM PDT Approved by: Mann Velarde MD on 07/28/2023 5:05 PM PDT Station ID: [id number]
== END 2023-07-28 11:20 | disposition home or self-care (01) ==
LOC: SDS 11:19
PROVIDERS: ATTEND Urology
PROC: 0T778DZ Dilation of Left Ureter with Intraluminal Device, Via Natural or Artificial Opening Endoscopic (ICD-10-PCS; 2023-07-28)
PROC: 0TF78ZZ Fragmentation in Left Ureter, Via Natural or Artificial Opening Endoscopic (ICD-10-PCS; principal; 2023-07-28 12:45)
DX: N20.1 Calculus of ureter (principal); I48.20 Chronic atrial fibrillation, unspecified; J45.909 Unspecified asthma, uncomplicated
CPT/HCPCS: 52356; C1758; C2617; J7120; Q9966